=== PATIENT | female | born 1990 | race Two or more races ===

== ENCOUNTER 2020-06-06 14:53 | Outpatient (CLI) | payer BC ==
[~2020-06-06] VITALS: Ht 175.3 cm; Wt 109.1 kg
[~2020-06-06 14:53] MED LIST: CEPH-368 PO; DOXYLAMINE PO; NITR100C56 PO; PREN1TAB60 PO
[2020-06-06 15:06] VITALS: BP 109/58
== END 2020-06-06 15:43 | disposition home or self-care (01) ==
LOC: LDOP 14:53
PROVIDERS: ATTEND Obstetrics & Gynecology Maternal & Fetal Medicine
DX: O46.8X3 Other antepartum hemorrhage, third trimester (principal); Z3A.34 34 weeks gestation of pregnancy
CPT/HCPCS: 59025

== ENCOUNTER → 2020-07-05 | Outpatient (CLI) | payer BC | END | disposition home or self-care (01) | LOC: STAR 11:53 | PROVIDERS: ATTEND Obstetrics & Gynecology | DX: Z01.818 Encounter for other preprocedural examination (principal); Z11.59 Encounter for screening for other viral diseases | CPT/HCPCS: 36415; 87635 ==

== ENCOUNTER 2020-07-12 15:11 | Inpatient (IN) | payer BC ==
[~2020-07-12] VITALS: Ht 175.3 cm; Wt 113.6 kg
[2020-07-15] MEDS ORDERED: NEWBORN KIT ONE ×2 (19:57→21:15)
[2020-07-15 20:14] VITALS: BP 120/71
[2020-07-15] MEDS ORDERED: OXYTOCIN 30U/ 0.9% NaCL 500ML 500 ML IV ONE (20:16)
[2020-07-15] MEDS ORDERED: D5%-LACTATED RINGERS 1,000 ML IV SCH (20:16)
[2020-07-15] MEDS ORDERED: TERBUTALINE 1 MG/ML, 1ML IVPush PRN (20:30)
[2020-07-15] MEDS ORDERED: TERBUTALINE 1 MG/ML, 1ML SQ PRN (20:30)
[2020-07-15] MEDS ORDERED: CALCIUM CARBONATE 500 MG TAB.CHEW PO PRN (20:30)
[2020-07-15] MEDS ORDERED: FENTANYL PF 100 MCG/2ML IV PRN (20:30)
[2020-07-15] MEDS ORDERED: ONDANSETRON 2MG/ML, 2ML IVPush PRN (20:30)
[2020-07-15 20:41] LABS: BASOPHILS # (AUTO) 0.12 x10^3/uL (0-0.1); BASOPHILS % (AUTO) 1 % (0-1); EOSINOPHILS # (AUTO) 0.14 x10^3/uL (0-0.4); EOSINOPHILS % (AUTO) 1 % (1-7); LYMPHOCYTES # (AUTO) 2.49 x10^3/uL (1-3.4); LYMPHOCYTES % (AUTO) 24 % (22-44); MD NO; MEAN CORPUSCULAR HEMOGLOBIN 28.7 pg (27.0-34.8); MEAN CORPUSCULAR HGB CONC 33.3 g/dL (32.4-35.8); MEAN CORPUSCULAR VOLUME 86.2 fL (80-100); MEAN PLATELET VOLUME 8.3 fL (7.4-10.4); MONOCYTES # (AUTO) 0.47 x10^3/uL (0.2-0.8); MONOCYTES % (AUTO) 5 % (2-9); NEUTROPHILS # (AUTO) 7.35 x10^3/uL (1.8-6.8); NEUTROPHILS % (AUTO) 69 % (42-75); PLATELET COUNT 330 x10^3/uL (130-400); RED BLOOD COUNT 4.18 x10^6/uL (3.82-5.3); RED CELL DISTRIBUTION WIDTH 14.3 % (9.6-15.2)
[2020-07-15] MEDS: LACTATED RINGERS 1,000 ML IV SCH (20:57)
[2020-07-15] MEDS ORDERED: LIDOCAINE 1%, 20ML ONE (21:16)
[2020-07-15] MEDS ORDERED: OXYTOCIN 30U/ 0.9% NaCL 500ML 500 ML ONE (21:16)
[2020-07-15] MEDS ORDERED: MISOPROSTOL 200 MCG TABLET ONE (21:16)
[2020-07-15] MEDS ORDERED: MISOPROSTOL 25 MCG TABLET ONE (21:16)
[2020-07-15] MEDS ORDERED: MISOPROSTOL 25 MCG TABLET VG PRN (21:30)
[2020-07-16] MEDS ORDERED: FENTANYL PF 100 MCG/2ML ONE ×2 (00:26→01:31)
[2020-07-16] MEDS: FENTANYL PF 100 MCG/2ML IVPush PRN ×2 (00:29→01:33)
[2020-07-16] MEDS ORDERED: FENTANYL/BUPIV./NS/PF 250 ML EPIDCONT ONE (02:02)
[2020-07-16] MEDS ORDERED: LIDOCAINE/PF 1.5% EPI 1:200K, 10 ML ONE (02:16)
[2020-07-16] MEDS ORDERED: LACTATED RINGERS 1,000 ML IV SCH (02:43)
[2020-07-16] MEDS ORDERED: FENTANYL/BUPIV./NS/PF 250 ML EPIDCONT SCH (02:43)
[2020-07-16] MEDS ORDERED: EPHEDRINE 50 MG/ML, 1ML IVPush PRN (03:00)
[2020-07-16] MEDS ORDERED: NALOXONE 0.4 MG/ML, 1ML IVPush PRN (03:00)
[2020-07-16] MEDS ORDERED: LACTATED RINGERS 1,000 ML IVBOLUS PRN (03:00)
[2020-07-16] MEDS: LACTATED RINGERS 1,000 ML IV SCH (03:56)
[2020-07-16] MEDS ORDERED: OXYTOCIN 30U/ 0.9% NaCL 500ML 500 ML IV PRN (05:16)
[2020-07-16] MEDS: OXYTOCIN 30U/ 0.9% NaCL 500ML 500 ML IV SCH ×2 (08:17→18:17)
[2020-07-16] MEDS ORDERED: METHYLERGONOVINE 0.2 MG/ML IM PRN (08:30)
[2020-07-16] MEDS ORDERED: SIMETHICONE 80 MG CHEW TAB PO PRN (08:30)
[2020-07-16] MEDS ORDERED: MISOPROSTOL 200 MCG TABLET PR PRN (08:30)
[2020-07-16] MEDS ORDERED: DIPH,PERTUSS(ACELL),TET VAC/PF NC IM-VACC PRN (08:30)
[2020-07-16] MEDS ORDERED: MEASLES,MUMPS&RUBELLA VACC/PF 0.5 ML SQ-VACC PRN (08:30)
[2020-07-16] MEDS ORDERED: CARBOPROST TROMETHAMINE 250 MCG/ML, 1ML IM PRN (08:30)
[2020-07-16] MEDS ORDERED: ACETAMINOPHEN 325 MG TABLET PO PRN (08:30)
[2020-07-16] MEDS ORDERED: OXYcodone/APAP 5/325MG TABLET PO PRN ×2 (08:30)
[2020-07-16] MEDS: PRENATAL VIT/IRON/FA 1 EACH TABLET PO SCH (09:00)
[2020-07-16 10:50] VITALS: BP 105/67
[2020-07-16] MEDS: IBUPROFEN 600 MG TABLET PO PRN ×2 (13:00→19:20)
[2020-07-16 15:32] VITALS: BP 108/70
[2020-07-16 16:41] LABS: BASOPHILS # (AUTO) 0.05 x10^3/uL (0-0.1); BASOPHILS % (AUTO) 0 % (0-1); EOSINOPHILS # (AUTO) 0.11 x10^3/uL (0-0.4); EOSINOPHILS % (AUTO) 1 % (1-7); LYMPHOCYTES % (AUTO) 12 % (22-44); MD NO; MEAN CORPUSCULAR HEMOGLOBIN 28.9 pg (27.0-34.8); MEAN CORPUSCULAR HGB CONC 33.6 g/dL (32.4-35.8); MEAN PLATELET VOLUME 8.6 fL (7.4-10.4); MONOCYTES # (AUTO) 0.73 x10^3/uL (0.2-0.8); MONOCYTES % (AUTO) 4 % (2-9); NEUTROPHILS % (AUTO) 83 % (42-75); PLATELET COUNT 289 x10^3/uL (130-400); RED BLOOD COUNT 3.84 x10^6/uL (3.82-5.3)
[2020-07-16 19:20] VITALS: BP 102/67
[2020-07-16] MEDS: DOCUSATE 100 MG CAPSULE PO PRN (19:20)
[2020-07-17 00:04] VITALS: BP 110/67
[2020-07-17] MEDS: OXYTOCIN 30U/ 0.9% NaCL 500ML 500 ML IV SCH (04:17)
[2020-07-17 04:23] VITALS: BP 107/68
[2020-07-17 07:16] VITALS: BP 104/62
[2020-07-17] MEDS: PRENATAL VIT/IRON/FA 1 EACH TABLET PO SCH (07:57)
[2020-07-17] MEDS: IBUPROFEN 600 MG TABLET PO PRN (07:57)
[2020-07-17] MEDS: DOCUSATE 100 MG CAPSULE PO PRN (07:57)
[2020-07-17] MEDS ORDERED: IBUP-1222 PO (09:13)
== END 2020-07-17 13:05 | disposition home or self-care (01) | DRG 807 ==
LOC: LDIP 07-15 19:51 → 2NW 07-16 10:39
PROVIDERS: ADMIT Obstetrics & Gynecology Maternal & Fetal Medicine; ATTEND Obstetrics & Gynecology Maternal & Fetal Medicine
PROC: 0KQM0ZZ Repair Perineum Muscle, Open Approach (ICD-10-PCS; principal; 2020-07-16)
PROC: 10E0XZZ Delivery of Products of Conception, External Approach (ICD-10-PCS; 2020-07-16)
PROC: 3E0R3BZ Introduction of Anesthetic Agent into Spinal Canal, Percutaneous Approach (ICD-10-PCS; 2020-07-16)
PROC: 00HU33Z Insertion of Infusion Device into Spinal Canal, Percutaneous Approach (ICD-10-PCS; 2020-07-16)
PROC: 3E033VJ Introduction of Other Hormone into Peripheral Vein, Percutaneous Approach (ICD-10-PCS; 2020-07-16)
DX: O48.0 Post-term pregnancy (principal); Z37.0 Single live birth; Z3A.40 40 weeks gestation of pregnancy; O70.1 Second degree perineal laceration during delivery
CPT/HCPCS: 36415; J7121; 85025; 86592; 86850; 86900; 90715; G0378; J3010; J2590; J7120